=== PATIENT | male | born 1945 | race Caucasian/White ===

== ENCOUNTER 2021-09-03 22:58 | Emergency (ER) | payer MEDICARE, OTHER ==
--- NOTE | 2021-09-04 00:05 | ED Physician Documentation ---
PD HPI MALE - Stated complaint Stated Complaint: MALE - Chief complaint Chief Complaint: Abd Pain - History obtained from History obtained from: Patient - History of Present Illness Timing - onset: How many days ago (3) - Additional information Additional information: 75-year-old male with history of BPH presents for 3 days of increasing difficulty urinating and approximately 4 hours of inability to urinate. Patient states that he had a prostatic artery embolization performed 10 days ago in [place] for BPH. He states that he had been recovering from the procedure well and decided to go on vacation. Symptoms have gradually worsened since onset. He was able to urinate a small amount approximately 30 minutes after arrival to the ER. He states that he takes daily Flomax, but this does not seem to be helping. Denies nausea, vomiting, abdominal pain, flank pain, other complaints at this time. Review of Systems Ten Systems: 10 systems reviewed and negative Constitutional: denies: Fever, Chills Cardiac: denies: Chest pain / pressure, Palpitations Respiratory: denies: Dyspnea, Cough GI: denies: Abdominal Pain, Abdominal Swelling, Nausea, Vomiting : reports: Unable to Void. denies: Dysuria, Frequency PD PAST MEDICAL HISTORY - Past Medical History Past Medical History: Yes - Allergies Allergies/Adverse Reactions: Allergies Allergy/AdvReac Type Severity Reaction Status Date / Time No Known Drug Allergies Allergy Verified 09/03/21 23:08 PD ED PE NORMAL - Vitals Vital signs reviewed: Yes - General General: Alert and oriented X 3, No acute distress, Well developed/nourished - HEENT HEENT: Atraumatic, PERRL, EOMI, Ears normal - Neck Neck: Supple, no meningeal sign, No bony TTP, No adenopathy - Cardiac Cardiac: RRR, No murmur, Strong equal pulses - Respiratory Respiratory: No respiratory distress, Clear bilaterally - Abdomen Abdomen: Soft, Non tender, Non distended, No organomegaly - Male Male : Deferred - Rectal Rectal: Deferred - Back Back: No CVA TTP, No spinal TTP - Derm Derm: Normal color, No rash - Extremities Extremities: No deformity, No tenderness to palpate, Normal ROM s pain - Neuro Neuro: Alert and oriented X 3, management technician 2-12 intact, No motor deficit, No sensory deficit, Normal speech - Psych Psych: Normal mood, Normal affect Results - Vitals Vitals: Vital Signs - 24 hr 09/03/21 09/03/21 09/04/21 23:01 23:07 01:07 Heart Rate 110 H 110 H 92 Respiratory 14 14 Rate Blood Pressure 152/92 H 152/92 H 153/74 H O2 Saturation 100 100 100 09/04/21 02:58 Heart Rate 136 H Respiratory 16 Rate Blood Pressure 155/91 H O2 Saturation 93 Oxygen O2 Source Room air - Labs Labs: Laboratory Tests 09/04/21 09/04/21 09/04/21 00:18 00:18 01:20 WBC 11.7 H RBC 4.15 L Hgb 12.9 L Hct 38.9 L MCV 93.7 MCH 31.1 H MCHC 33.2 RDW 13.3 Plt Count 250 MPV 8.8 Neut # (Auto) 9.7 H Lymph # (Auto) 0.9 L Reynolds # (Auto) 0.9 Eos # (Auto) 0.1 Baso # (Auto) 0.0 Absolute Nucleated RBC 0.00 Nucleated RBC % 0.0 Sodium 134 L Potassium 3.8 Chloride 99 L Carbon Dioxide 27 Anion Gap 8.0 BUN 20 Creatinine 0.9 Estimated GFR (MDRD) 82 L Glucose 108 H Calcium 8.7 Urine Color YELLOW Urine Clarity CLEAR Urine pH 6.0 Ur Specific [place] 1.020 Urine Protein NEGATIVE Urine Glucose (UA) NEGATIVE Urine Ketones TRACE Urine Occult Blood NEGATIVE Urine Nitrite NEGATIVE Urine Bilirubin NEGATIVE Urine Urobilinogen 0.2 (NORMAL) Ur Leukocyte Esterase NEGATIVE Ur Microscopic Review NOT INDICATED Urine Culture Comments NOT INDICATED PD MEDICAL DECISION MAKING - ED course Complexity details: reviewed results, re-evaluated patient, considered differential, d/w patient, d/w family ED course: Patient with difficulty urinating, recent prostate procedure. Patient's bladder scan showed 330 mL of urine, patient despite numerous attempts is only able to produce a small amount of urine. No evidence of infection. Perry placed with clear urine produced. Patient was given Perry catheter instructions and leg bag. Patient requested urology referral to local clinics as he is not from the area. Several clinics provided. Patient discharged home in stable condition with his . Departure - Departure Disposition: 01 Home, Self Care Clinical Impression: Urinary retention due to benign prostatic hyperplasia Condition: Stable Instructions: Leg Bag Care Dc, ED Catheter Care Perry Comments: [facility] [id number] [facility] [address] [facility] [id number] [facility] [address] [facility] [id number] Discharge Date/Time: 09/04/21 02:58
[2021-09-04 00:24] LABS: BASOPHILS % (AUTO) 0.3 %; EOSINOPHILS # (AUTO) 0.1 10^3/uL (0.0-0.7); EOSINOPHILS % (AUTO) 0.5 %; HCT - HEMATOCRIT 38.9 % (42.0-52.0); HGB - HEMOGLOBIN 12.9 g/dL (14.0-18.0); LYMPHOCYTES # (AUTO) 0.9 10^3/uL (1.5-3.5); LYMPHOCYTES % (AUTO) 7.6 %; MEAN CORPUSCULAR HEMOGLOBIN 31.1 pg (27.0-31.0); MEAN CORPUSCULAR HGB CONC 33.2 g/dL (32.0-36.0); MEAN CORPUSCULAR VOLUME 93.7 fL (80.0-94.0); MEAN PLATELET VOLUME 8.8 fL (7.4-11.4); MONOCYTES # (AUTO) 0.9 10^3/uL (0.0-1.0); MONOCYTES % (AUTO) 7.6 %; NEUTROPHILS # (AUTO) 9.7 10^3/uL (1.5-6.6); NEUTROPHILS % (AUTO) 83.5 %; PLT - PLATELET COUNT 250 10^3/uL (130-450); RED BLOOD COUNT 4.15 10^6/uL (4.70-6.10); RED CELL DISTRIBUTION WIDTH 13.3 % (12.0-15.0); WHITE BLOOD COUNT 11.7 x10^3/uL (4.8-10.8)
[2021-09-04 00:32] LABS: CALCIUM 8.7 mg/dL (8.5-10.3); CREATININE 0.9 mg/dL (0.6-1.2); POTASSIUM 3.8 mmol/L (3.5-5.0)
[2021-09-04 01:28] LABS: BILIRUBIN,URINE NEGATIVE (NEGATIVE); GLUCOSE, URINE (UA) NEGATIVE (NEGATIVE); KETONES,URINE (UA) TRACE mg/dL (NEGATIVE); LEUKOCYTE ESTERASE, URINE NEGATIVE (NEGATIVE); NITRITE,URINE NEGATIVE (NEGATIVE); OCCULT BLOOD,URINE NEGATIVE (NEGATIVE); PROTEIN,URINE NEGATIVE (NEGATIVE); UROBILINOGEN,URINE 0.2 (NORMAL) E.U./dL (NORMAL)
[2021-09-04 01:34] LABS: CLARITY,URINE CLEAR (CLEAR)
[2021-09-04] MEDS ORDERED: LIDOCAINE 2% URO-JET 5 ML SYRINGE UR STA (01:53)
[2021-09-04 03:00] VITALS: BP 155/91
--- NOTE | 2021-09-07 16:15 | ED Physician Documentation ---
ED Addendum - Addendum Addendum: 09/07/21 16:13 I received a call from patient stating that he was experiencing a "low-grade" fever. Still has catheter in. Requesting prophylactic dose of bactrim. I will fill this rx for patient, he was counseled to return to the ED immediately if he did not experience improvement in 24-48 hours. Patient expressed understanding. Has urology appointment this week.
== END 2021-09-04 02:58 | disposition home or self-care (01) ==
LOC: ED 22:58
DX: N40.1 Benign prostatic hyperplasia with lower urinary tract symptoms (principal); R33.8 Other retention of urine; R50.9 Fever, unspecified
CPT/HCPCS: 36415; 51702; 51798; 80048; 81001; 81003; 85025; 87086; 99283; 99284